=== PATIENT | male | born 1990 | race Caucasian/White ===

== ENCOUNTER 2017-12-30 10:20 | Observation (INO) | payer BC, OTHER ==
[2017-12-30] MEDS ORDERED: HYDROmorphone 0.5 MG/0.5 ML SYRINGE IVP STA (12:48)
[2017-12-30] MEDS ORDERED: ONDANSETRON 4 MG/2 ML VIAL IVP STA (12:48)
[2017-12-30] MEDS ORDERED: SODIUM CHLORIDE 0.9% 1,000 ML IV ONE (12:50)
[2017-12-30] MEDS ORDERED: RX INFO: IV CONTRAST WAS GIVEN 1 EACH MISC MISCELLANE PRN (12:50)
--- NOTE | 2017-12-30 12:56 | ED ---
Abdominal Pain HPI - General Chief Complaint: Abdominal Pain Stated Complaint: POSS APPENDICITIS OR HERNIA, SENT BY Time Seen by Provider: 12/30/17 12:42 Source: patient Mode of arrival: ambulatory Limitations: no limitations - History of Present Illness Initial Comments: This is a 27 year old male who presents with a chief complaint of abdominal pain that began yesterday at 1500. He reports vomiting today and that the pain is worse when he eats, so he has not eaten anything today. He was seen by his primary care provider who sent him to the ED for possible appendicitis. His primary care provider was also concerned that he may have an issue with a hernia. His pain is at 7/10. He denies fevers or diarrhea. - Related Data Home Medications Medication Instructions Recorded Confirmed Acetaminophen [Tylenol] 325 mg PO Q6HR PRN 12/30/17 12/30/17 Bismuth Subsalicylate 15 mg PO DAILY PRN 12/30/17 12/30/17 [Pepto-Bismol] Citalopram Hydrobromide [CeleXA] 10 mg PO DAILY 12/30/17 12/30/17 Dextroamphetamine/Amphetamine 20 mg PO HS 12/30/17 12/30/17 [Adderall] Dextroamphetamine/Amphetamine 30 mg PO DAILY 12/30/17 12/30/17 [Adderall] busPIRone HCl [Buspar] 10 mg PO DAILY 12/30/17 12/30/17 Allergies Allergy/AdvReac Type Severity Reaction Status Date / Time No Known Allergies Allergy Verified 12/30/17 12:45 Review of Systems ROS Statement: Those systems with pertinent positive or pertinent negative responses have been documented in the HPI. ROS Other: All systems not noted in ROS Statement are negative. Past Medical History Past Medical History: No Reported History History of Any Multi-Drug Resistant Organisms: None Reported Past Surgical History: No Surgical Hx Reported Past Psychological History: No Psychological Hx Reported Smoking Status: Current every day smoker Past Alcohol Use History: Occasional Past Drug Use History: None Reported General Exam Limitations: no limitations General appearance: alert, in no apparent distress Head exam: Present: atraumatic, normocephalic, normal inspection GI/Abdominal exam: Present: soft, tenderness (Right lower quadrant is tender to palpation. Negative rebound tenderness. Positive obturator sign. No signs of incarcerated or strangulated hernia present.), normal bowel sounds. Absent: distended, guarding, rebound, rigid, pulsatile mass, hernia Extremities exam: Present: normal inspection, full ROM, normal capillary refill. Absent: tenderness, pedal edema, joint swelling, calf tenderness Neurological exam: Present: alert, oriented X3, CN II-XII intact Psychiatric exam: Present: normal affect, normal mood Skin exam: Present: warm, dry, intact, normal color. Absent: rash Course Vital Signs 12/30/17 12/30/17 10:48 13:50 Temperature 98.8 F Pulse Rate 98 96 Respiratory 18 18 Rate Blood Pressure 118/57 129/76 O2 Sat by Pulse 98 98 Oximetry Medical Decision Making - Lab Data Result diagrams: 12/30/17 13:02 12/30/17 13:02 Lab Results 12/30/17 12/30/17 Range/Units 13:02 13:02 WBC 16.7 H (3.8-10.6) k/uL RBC 5.31 (4.30-5.90) m/uL Hgb 16.4 (13.0-17.5) gm/dL Hct 48.0 (39.0-53.0) % MCV 90.4 (80.0-100.0) fL MCH 30.9 (25.0-35.0) pg MCHC 34.2 (31.0-37.0) g/dL RDW 12.0 (11.5-15.5) % Plt Count 207 (150-450) k/uL Neutrophils % 86 % Lymphocytes % 7 % Monocytes % 5 % Eosinophils % 1 % Basophils % 0 % Neutrophils # 14.4 H (1.3-7.7) k/uL Lymphocytes # 1.1 (1.0-4.8) k/uL Monocytes # 0.9 (0-1.0) k/uL Eosinophils # 0.1 (0-0.7) k/uL Basophils # 0.0 (0-0.2) k/uL Sodium 141 (137-145) mmol/L Potassium 4.1 (3.5-5.1) mmol/L Chloride 99 (98-107) mmol/L Carbon Dioxide 29 (22-30) mmol/L Anion Gap 13 mmol/L BUN 13 (9-20) mg/dL Creatinine 0.80 (0.66-1.25) mg/dL Est GFR (MDRD) Af Amer >60 (>60 ml/min/1.73 sqM) Est GFR (MDRD) Non-Af >60 (>60 ml/min/1.73 sqM) Glucose 110 H (74-99) mg/dL Calcium 10.0 (8.4-10.2) mg/dL Total Bilirubin 0.8 (0.2-1.3) mg/dL AST 23 (17-59) U/L ALT 31 (21-72) U/L Alkaline Phosphatase 54 (38-126) U/L Total Protein 7.6 (6.3-8.2) g/dL Albumin 4.9 (3.5-5.0) g/dL Amylase 41 (30-110) U/L Lipase 35 (23-300) U/L Disposition Clinical Impression: Acute appendicitis Disposition: ADMITTED IP TO THIS [facility] Condition: Stable Referrals: Faiza Jasso DO [Primary Care Provider] - 1-2 days
[2017-12-30 13:15] LABS: Basophils % (A) 0 %; Eosinophils # (A) 0.1 k/uL (0-0.7); Eosinophils % (A) 1 %; HGB 16.4 gm/dL (13.0-17.5); Lymphocytes # (A) 1.1 k/uL (1.0-4.8); Lymphocytes % (A) 7 %; MCH 30.9 pg (25.0-35.0); MCHC 34.2 g/dL (31.0-37.0); MCV 90.4 fL (80.0-100.0); Mean Platelet Volume 6.8; Monocytes # (A) 0.9 k/uL (0-1.0); Monocytes % (A) 5 %; Neutrophils # (A) 14.4 k/uL (1.3-7.7); Neutrophils % (A) 86 %; Platelet Count 207 k/uL (150-450); RBC 5.31 m/uL (4.30-5.90); WBC 16.7 k/uL (3.8-10.6)
[2017-12-30 13:21] LABS: ALT 31 U/L (21-72); AST 23 U/L (17-59); Albumin 4.9 g/dL (3.5-5.0); Alkaline Phosphatase 54 U/L (38-126); Amylase 41 U/L (30-110); Anion Gap 13 mmol/L; Blood Urea Nitrogen 13 mg/dL (9-20); Carbon Dioxide 29 mmol/L (22-30); Chloride 99 mmol/L (98-107); Glucose 110 mg/dL (74-99); Lipase 35 U/L (23-300); Potassium 4.1 mmol/L (3.5-5.1); Sodium 141 mmol/L (137-145); Total Bilirubin 0.8 mg/dL (0.2-1.3); Total Protein 7.6 g/dL (6.3-8.2)
[2017-12-30] MEDS ORDERED: PIPERACILLIN-TAZOBACTAM 3.375 GM in DEXTROSE/WATER 1 50ML.BAG IVPB STA (14:08)
[2017-12-30] MEDS ORDERED: ONDANSETRON 4 MG/2 ML VIAL IVP PRN ×2 (14:11→17:43)
[2017-12-30] MEDS ORDERED: HYDROmorphone 0.5 MG/0.5 ML SYRINGE IVP PRN (14:11)
[2017-12-30] MEDS ORDERED: NALOXONE 0.4 MG/ML 1 ML VIAL IV PRN ×2 (14:11→17:43)
[2017-12-30 14:15] LABS: Appearance,Urine Clear (Clear); Bilirubin,Urine Negative (Negative); Blood,Urine Negative (Negative); Color,Urine Yellow; Glucose,Urine (UA) Negative (Negative); Ketones,Urine 1+ (Negative); Leukocyte Esterase,Urine Negative (Negative); Nitrite,Urine Negative (Negative); Protein,Urine Trace (Negative); Urobilinogen,Urine <2.0 mg/dL (<2.0)
[2017-12-30] MEDS ORDERED: SODIUM CHLORIDE 0.9% 1,000 ML IV SCH (14:15)
--- NOTE | 2017-12-30 14:24 | CT ---
EXAMINATION TYPE: CT abdomen pelvis w con DATE OF EXAM: 12/30/2017 COMPARISON: NONE INDICATION: RLQ pain DLP: 921 mGycm, Automated exposure control for dose reduction was used. CONTRAST: 100 mL of Omnipaque 300. Study performed without Oral Contrast TECHNIQUE: Axial images were obtained from above the diaphragm to the pubic rami in the axial plane a t 5 mm thick sections. Reconstructed images are reviewed on the computer in the coronal plane. FINDINGS: Limited CT sections are obtained the lung bases. The lung bases are clear. CT ABDOMEN: Liver: Normal Spleen: Normal Pancreas: Normal Adrenal glands: The adrenal glands are normal. Gallbladder: Normal Kidneys: No masses are evident. No hydronephrosis is present. No cysts are present. Delayed images were obtained through the kidneys, which remain unremarkable. Aorta: Normal Inferior vena cava: Normal. CT PELVIS: There is some diverticular changes within the sigmoid colon. Loops of bowel visualized otherwise appe ar unremarkable. Fecal debris is within the colon. Appendix: The appendix has mild wall enhancement. This is dilated at 1.0 cm. Subtle inflammatory sanford ge may be adjacent. Findings are suggestive for early acute appendicitis. The appendix extends from t he cecum towards the anterior mid pelvis correlate with location of patient's pain. Report was mohamud d to emergency room PA by Dr. Goetz by telephone at the time of preliminary interpretation. Urinary bladder: Decompressed with limited evaluation Genitourinary structures: Prostate is normal Osseous structures: No suspicious lytic or sclerotic lesions. IMPRESSIONS: 1. Findings compatible with early acute appendicitis.
[2017-12-30 15:04] LABS: Specific Gravity,Urine >1.050 (1.001-1.035)
[2017-12-30 15:05] VITALS: RESP 16
[2017-12-30] MEDS ORDERED: IV FLUID CONTINUATION 1,000 ML IV ONE (15:18)
--- NOTE | 2017-12-30 15:36 | P.GSHP ---
History of Present Illness H&P Date: 12/30/17 27-year-old male presents to the emergency department complaining of 1 day of abdominal pain. He states that the pain is localized to his right lower quadrant. He complains of nausea and episode of emesis. He denies any change in bowel function. On workup in the emergency department he was found to have a leukocytosis of [address] of his abdomen and pelvis was found to have acute appendicitis. Secondary to this, the patient was referred to surgery. - Review of Systems All systems: negative Past Medical History Past Medical History: No Reported History History of Any Multi-Drug Resistant Organisms: None Reported Past Surgical History: No Surgical Hx Reported Past Psychological History: No Psychological Hx Reported Smoking Status: Current every day smoker Past Alcohol Use History: Occasional Past Drug Use History: None Reported Medications and Allergies Home Medications Medication Instructions Recorded Confirmed Type Acetaminophen [Tylenol] 325 mg PO Q6HR PRN 12/30/17 12/30/17 History Bismuth Subsalicylate 15 mg PO DAILY PRN 12/30/17 12/30/17 History [Pepto-Bismol] Citalopram Hydrobromide [CeleXA] 10 mg PO DAILY 12/30/17 12/30/17 History Dextroamphetamine/Amphetamine 20 mg PO HS 12/30/17 12/30/17 History [Adderall] Dextroamphetamine/Amphetamine 30 mg PO DAILY 12/30/17 12/30/17 History [Adderall] busPIRone HCl [Buspar] 10 mg PO DAILY 12/30/17 12/30/17 History Allergies Allergy/AdvReac Type Severity Reaction Status Date / Time No Known Allergies Allergy Verified 12/30/17 12:45 Surgical - Exam Osteopathic Statement: *. No significant issues noted on an osteopathic structural exam other than those noted in the History and Physical/Consult. Vital Signs Temp Pulse Resp BP Pulse Ox 98.8 F 98 18 118/57 98 12/30/17 10:48 12/30/17 10:48 12/30/17 10:48 12/30/17 10:48 12/30/17 10:48 - General well developed, well nourished, no distress - Eyes PERRL, normal ocular movement - ENT normal mucosa, no hearing loss - Neck no masses, no bruits, trachea midline, no lymphadectomy - Respiratory No difficulty with respiration - Cardiovascular Rhythm: regular Heart Sounds: normal: S1, S2 - Abdomen Soft, tender to palpation in the right lower quadrant, nondistended, no rebound , no guarding - Neurologic normal coordination, normal sensation - Psychiatric oriented to time, oriented to person, oriented to place, speech is normal, memory intact Results - Labs 12/30/17 13:02 12/30/17 13:02 Abnormal Lab Results - Last 24 Hours (Table) 12/30/17 12/30/17 12/30/17 Range/Units 13:02 13:02 13:55 WBC 16.7 H (3.8-10.6) k/uL Neutrophils # 14.4 H (1.3-7.7) k/uL Glucose 110 H (74-99) mg/dL Ur Specific [place] >1.050 H (1.001-1.035) Urine Protein Trace H (Negative) Urine Ketones 1+ H (Negative) Diabetes panel 12/30/17 Range/Units 13:02 Sodium 141 (137-145) mmol/L Potassium 4.1 (3.5-5.1) mmol/L Chloride 99 (98-107) mmol/L Carbon Dioxide 29 (22-30) mmol/L BUN 13 (9-20) mg/dL Creatinine 0.80 (0.66-1.25) mg/dL Glucose 110 H (74-99) mg/dL Calcium 10.0 (8.4-10.2) mg/dL AST 23 (17-59) U/L ALT 31 (21-72) U/L Alkaline Phosphatase 54 (38-126) U/L Total Protein 7.6 (6.3-8.2) g/dL Albumin 4.9 (3.5-5.0) g/dL Calcium panel 12/30/17 Range/Units 13:02 Calcium 10.0 (8.4-10.2) mg/dL Albumin 4.9 (3.5-5.0) g/dL Pituitary panel 12/30/17 Range/Units 13:02 Sodium 141 (137-145) mmol/L Potassium 4.1 (3.5-5.1) mmol/L Chloride 99 (98-107) mmol/L Carbon Dioxide 29 (22-30) mmol/L BUN 13 (9-20) mg/dL Creatinine 0.80 (0.66-1.25) mg/dL Glucose 110 H (74-99) mg/dL Calcium 10.0 (8.4-10.2) mg/dL Adrenal panel 12/30/17 Range/Units 13:02 Sodium 141 (137-145) mmol/L Potassium 4.1 (3.5-5.1) mmol/L Chloride 99 (98-107) mmol/L Carbon Dioxide 29 (22-30) mmol/L BUN 13 (9-20) mg/dL Creatinine 0.80 (0.66-1.25) mg/dL Glucose 110 H (74-99) mg/dL Calcium 10.0 (8.4-10.2) mg/dL Total Bilirubin 0.8 (0.2-1.3) mg/dL AST 23 (17-59) U/L ALT 31 (21-72) U/L Alkaline Phosphatase 54 (38-126) U/L Total Protein 7.6 (6.3-8.2) g/dL Albumin 4.9 (3.5-5.0) g/dL - Imaging CT scan - abdomen: report reviewed, image reviewed CT scan - pelvis: report reviewed, image reviewed (I did review the CT of the abdomen and pelvis, early acute appendicitis is noted) Assessment and Plan (1) Acute appendicitis Current Visit: Yes Status: Acute Code(s): K35.80 - UNSPECIFIED ACUTE APPENDICITIS SNOMED Code(s): 54787283 Plan: 27-year-old male with acute appendicitis - Keep nothing by mouth - Begin antibiotics - Heparin subq - Plan for laparoscopic appendectomy, possible open - Further recommendations after surgery
[2017-12-30] MEDS ORDERED: SUCCINYLCHOLINE CHLORIDE 100 MG/5 ML SYR IV ONE (15:37)
[2017-12-30] MEDS ORDERED: KETOROLAC 30 MG/ML 1 ML VIAL ONE (15:37)
[2017-12-30] MEDS ORDERED: fentaNYL (PF) 50 MCG/ML 2 ML AMP ONE (15:37)
[2017-12-30] MEDS ORDERED: MIDAZOLAM 2 MG/2 ML VIAL ONE (15:37)
[2017-12-30] MEDS ORDERED: PROPOFOL 10 MG/ML 20 ML VIAL IV ONE (15:37)
[2017-12-30] MEDS ORDERED: NEOSTIGMINE 1 MG/ML 10 ML VIAL ONE (15:37)
[2017-12-30] MEDS ORDERED: LIDOCAINE 1% INJ 10MG/ML (20 ML MDV) ONE (15:37)
[2017-12-30] MEDS ORDERED: ROCURONIUM BROMIDE 10 MG/ML 10 ML VIAL IV ONE (15:37)
[2017-12-30] MEDS ORDERED: GLYCOPYRROLATE 0.2 MG/ML 2 ML VIAL ONE (15:37)
[2017-12-30] MEDS ORDERED: HEPARIN SODIUM,PORCINE 5,000 UNIT/ML 1 ML VIAL SQ STA (15:41)
[2017-12-30] MEDS ORDERED: BUPIVACAINE (PF) 0.25% 30 ML VIAL SQ ONE ×2 (15:56)
[2017-12-30] MEDS ORDERED: LACTATED RINGERS 1,000 ML IV ONE ×2 (15:56→17:43)
--- NOTE | 2017-12-30 16:48 | P.OP ---
Date of Procedure: 12/30/17 Preoperative Diagnosis: Acute appendicitis Postoperative Diagnosis: Acute appendicitis Procedure(s) Performed: Laparoscopic appendectomy Anesthesia: DAWN Surgeon: Micah Riley Pathology: other (Appendix) Condition: stable Disposition: floor Indications for Procedure: 27-year-old male presented complaining of right lower quadrant abdominal pain. On workup in the emergency department he was noted to have a leukocytosis and a CT abdomen and pelvis positive for acute appendicitis. Plan was for a laparoscopic appendectomy. Risks, benefits and alternatives were provided to the patient. The patient did provide consent prior to attending the operating suite. Operative Findings: Acute appendicitis with an inflamed appendix, some purulent discharge Description of Procedure: The patient was brought into the operating suite and placed in the supine position on the operating table. Sedation was provided by anesthesia and the patient underwent endotracheal intubation. The patient was then prepped and draped in regular sterile fashion. A supraumbilical incision was made dissection was carried to the fascia the fascia was incised and a 10 mm port was placed. Insufflation was then turned on and pneumoperitoneum was achieved. 2 additional 5 mm ports were placed in the suprapubic and left lower quadrant. The patient was then positioned appropriately and there was immediate visualization of the appendix. It was noted to be inflamed, injected and had some exudative changes. A window was created using a [place] dissector between the appendix and the mesoappendix. Once this window was created, a stapling device was fired across the base of the appendix. Dissection of the mesoappendix from the appendix was then performed using a LigaSure device. Hemostasis was noted to be maintained. The appendix was then placed in an Endo Catch bag and removed from the abdomen from the supraumbilical position. Mild irrigation was then used in the right lower quadrant. Hemostasis was noted to be maintained. Pneumoperitoneum was then released. All ports were then removed from the abdomen. A supraumbilical incision was closed using a [id number] 0 Vicryl suture. All skin incisions were closed with 4-0 subcuticular Vicryl suture. The patient was then awakened in the operative suite and taken to postanesthesia care unit in stable condition.
[2017-12-30 18:10] VITALS: BMI 27.4
[2017-12-30] MEDS: HYDROmorphone 0.5 MG/0.5 ML SYRINGE IVP PRN ×2 (18:11→21:02)
[2017-12-30] MEDS: CITALOPRAM HYDROBROMIDE 10 MG TAB PO SCH (20:27)
[2017-12-30] MEDS: busPIRone HCl 10 MG TAB PO SCH (20:27)
[2017-12-30] MEDS: HYDROcodone/APAP 5-325MG 1 EACH TAB PO PRN (20:31)
[2017-12-30] MEDS: AMPICILLIN-SULBACTAM 3 GM in SODIUM CHLORIDE 0.9% 100 ML IVPB SCH (23:07)
[2017-12-30] MEDS: HEPARIN SODIUM,PORCINE 5,000 UNIT/ML 1 ML VIAL SQ SCH (23:07)
[2017-12-31] MEDS: HYDROmorphone 0.5 MG/0.5 ML SYRINGE IVP PRN ×2 (00:31→05:05)
[2017-12-31 07:04] LABS: Basophils % (A) 0 %; Eosinophils # (A) 0.1 k/uL (0-0.7); Eosinophils % (A) 1 %; HCT 39.9 % (39.0-53.0); Lymphocytes # (A) 1.5 k/uL (1.0-4.8); Lymphocytes % (A) 23 %; MCHC 33.5 g/dL (31.0-37.0); MCV 92.6 fL (80.0-100.0); Mean Platelet Volume 6.7; Monocytes # (A) 0.5 k/uL (0-1.0); Monocytes % (A) 8 %; Neutrophils # (A) 4.3 k/uL (1.3-7.7); Neutrophils % (A) 65 %; Platelet Count 176 k/uL (150-450); RBC 4.31 m/uL (4.30-5.90); RDW 12.2 % (11.5-15.5); WBC 6.6 k/uL (3.8-10.6)
[2017-12-31 07:06] LABS: HGB 13.4 gm/dL (13.0-17.5)
[2017-12-31 07:14] LABS: ALT 25 U/L (21-72); AST 24 U/L (17-59); Albumin 3.3 g/dL (3.5-5.0); Alkaline Phosphatase 42 U/L (38-126); Anion Gap 7 mmol/L; Blood Urea Nitrogen 13 mg/dL (9-20); Calcium 9.1 mg/dL (8.4-10.2); Carbon Dioxide 30 mmol/L (22-30); Chloride 101 mmol/L (98-107); Glucose 87 mg/dL (74-99); Potassium 4.2 mmol/L (3.5-5.1); Sodium 138 mmol/L (137-145); Total Bilirubin 0.7 mg/dL (0.2-1.3); Total Protein 5.5 g/dL (6.3-8.2)
[2017-12-31] MEDS: HYDROcodone/APAP 5-325MG 1 EACH TAB PO PRN ×2 (07:48→13:51)
[2017-12-31] MEDS: AMPICILLIN-SULBACTAM 3 GM in SODIUM CHLORIDE 0.9% 100 ML IVPB SCH (08:24)
[2017-12-31] MEDS: busPIRone HCl 10 MG TAB PO SCH (08:24)
[2017-12-31] MEDS: HEPARIN SODIUM,PORCINE 5,000 UNIT/ML 1 ML VIAL SQ SCH (08:26)
[2017-12-31] MEDS ORDERED: PANTOPRAZOLE 40 MG/10 ML VIAL IV SCH (09:00)
[2017-12-31 09:06] VITALS: BP 116/60; PULSE 73; TEMP 98.1
--- NOTE | 2017-12-31 09:31 | P.DS ---
Providers Date of admission: 12/30/17 14:14 Attending physician: Micah Riley DO Primary care physician: Faiza Jasso - Discharge Diagnosis(es) (1) Acute appendicitis Current Visit: Yes Status: Acute Hospital Course: The patient was taken to the operating room for laparoscopic appendectomy. Postoperatively, the patient did well. Pain was controlled. Leukocytosis improved. The patient was ambulating and urinating without any issues. He was advanced to a regular diet. He was deemed stable for discharge on postoperative day #1. Procedures: Laparoscopic appendectomy Patient Condition at Discharge: Stable Plan - Discharge Summary Discharge Rx Participant: Yes New Discharge Prescriptions: New HYDROcodone/APAP 5-325MG [[place] 5-325] 1 each PO Q6HR PRN #20 tab PRN Reason: Moderate Pain Continue busPIRone HCl [Buspar] 10 mg PO DAILY Citalopram Hydrobromide [CeleXA] 10 mg PO DAILY Bismuth Subsalicylate [Pepto-Bismol] 15 mg PO DAILY PRN PRN Reason: Heartburn Dextroamphetamine/Amphetamine [Adderall] 20 mg PO HS Dextroamphetamine/Amphetamine [Adderall] 30 mg PO DAILY Discontinued Acetaminophen [Tylenol] 325 mg PO Q6HR PRN PRN Reason: Pain Discharge Medication List Bismuth Subsalicylate [Pepto-Bismol] 15 mg PO DAILY PRN 12/30/17 [History] Citalopram Hydrobromide [CeleXA] 10 mg PO DAILY 12/30/17 [History] Dextroamphetamine/Amphetamine [Adderall] 20 mg PO HS 12/30/17 [History] Dextroamphetamine/Amphetamine [Adderall] 30 mg PO DAILY 12/30/17 [History] busPIRone HCl [Buspar] 10 mg PO DAILY 12/30/17 [History] HYDROcodone/APAP 5-325MG [[place] 5-325] 1 each PO Q6HR PRN #20 tab 12/31/17 [Rx] Follow up Appointment(s)/Referral(s): Faiza Jasso DO [Primary Care Provider] - 1-2 days Micah Riley DO [Doctor of Osteopathic Medicine] - 10 Days Patient Instructions/Handouts: Appendicitis (GEN) Activity/Diet/Wound Care/Special Instructions: Increase activity as tolerated Soft foods 1 week Okay to shower, avoid scrubbing incisions Take stool softeners Discharge Disposition: HOME SELF-CARE
[2017-12-31] MEDS: CITALOPRAM HYDROBROMIDE 10 MG TAB PO SCH (11:51)
[2017-12-31] MEDS ORDERED: HYDROmorphone 2 MG TAB PO PRN (14:11)
[2018-01-01] MEDS ORDERED: PANTOPRAZOLE 40 MG TABLET PO SCH (07:30)
== END 2017-12-31 13:54 | disposition home or self-care (01) ==
LOC: EC 10:20 → 3OBS 14:14
PROVIDERS: ADMIT Surgery; ATTEND Surgery
DX: K35.80 Unspecified acute appendicitis (principal); F17.200 Nicotine dependence, unspecified, uncomplicated; Z79.899 Other long term (current) drug therapy
CPT/HCPCS: 44970; 99285 ×2; 96365 ×2; 96375 ×3; 96361 ×2; 36415; 88304; 80053 ×2; 82150; 83690; 85025 ×2; 81003; 74177; G0378 ×2; J2250; J1644 ×2; J2710; J2405; J2001; J3010; J1885; J2543; Q9967; J0295 ×2; J0330; J2704; C9113; J1170 ×2

== ENCOUNTER 2023-08-01 06:39 | Emergency (ER) | payer OTHER, BC ==
[2023-08-01 06:49] VITALS: TEMP 98.1
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
[2023-08-01 08:40] VITALS: BP 145/80; PULSE 68; RESP 16
== END 2023-08-01 08:36 | disposition home or self-care (01) ==
LOC: EC 06:39
DX: S93.402A Sprain of unspecified ligament of left ankle, initial encounter (principal); S70.02XA Contusion of left hip, initial encounter; F17.290 Nicotine dependence, other tobacco product, uncomplicated; F90.9 Attention-deficit hyperactivity disorder, unspecified type; Z79.899 Other long term (current) drug therapy; V89.2XXA Person injured in unspecified motor-vehicle accident, traffic, initial encounter; Y92.410 Unspecified street and highway as the place of occurrence of the external cause
CPT/HCPCS: 71045; 73502; 99284